=== PATIENT | male | born 1965 | race Caucasian/White ===

== ENCOUNTER 2023-08-26 17:22 | Emergency (ER) | payer OTHER ==
[~2023-08-26] VITALS: Ht 167.6 cm; Wt 105.0 kg
[2023-08-26 17:24] VITALS: O2SAT 97
[2023-08-26] MEDS: HYDRALAZINE 20MG/ML VIAL IV ONE (18:22)
[2023-08-26 18:48] LABS: BASOPHILS % 0.9 % (0.0-2.0); EOSINOPHILS % 2.7 % (0.0-5.0); HEMATOCRIT. 39.3 % (42.0-52.0); HEMOGLOBIN. 13.2 g/dL (14.0-18.0); LYMPHOCYTES % 22.2 % (20.0-50.0); MEAN CORPUSCULAR HEMOGLOBIN 30.9 pg (28.0-32.0); MEAN CORPUSCULAR HGB CONC 33.6 g/dL (31.0-37.0); MEAN CORPUSCULAR VOLUME 92.1 fL (80.0-94.0); MEAN PLATELET VOLUME 8.7 fl (7.4-10.4); MONOCYTES % 7.3 % (2.0-8.0); NEUTROPHILS % 66.9 % (40.0-76.0); PLATELET 288 x1000/uL (130-400); RED BLOOD CELL COUNT 4.27 mill/uL (4.7-6.1); RED CELL DISTRIBUTION WIDTH 13.7 % (11.6-14.6); WHITE BLOOD COUNT 8.3 x1000/uL (4.5-11.0)
[2023-08-26 18:50] LABS: CHLORIDE 105 mEq/L (98-107); POTASSIUM 3.7 mEq/L (3.5-5.1); SODIUM 141 mEq/L (136-145)
[2023-08-26 18:51] LABS: CARBON DIOXIDE 29 mEq/L (21-32)
[2023-08-26 18:56] LABS: CREATININE 0.7 mg/dL (0.6-1.3); GLUCOSE 97 mg/dL (70-105); UREA NITROGEN BLOOD 6 mg/dL (9-23)
[2023-08-26 18:57] LABS: TROPONIN I HIGH SENSITIVITY 6 ng/L (3.0-53)
[2023-08-26 21:51] LABS: TROPONIN I HIGH SENSITIVITY 6 ng/L (3.0-53)
[2023-08-26] MEDS ORDERED: LISI10TA26 MT (22:19)
[2023-08-26 22:48] VITALS: BP 152/77; PULSE 64; RESP 15; TEMP 98.4
== END 2023-08-26 23:11 | disposition home or self-care (01) ==
LOC: ER 17:22
DX: I10 Essential (primary) hypertension (principal); R06.02 Shortness of breath; F32.9 Major depressive disorder, single episode, unspecified; Z88.0 Allergy status to penicillin
CPT/HCPCS: 36415; 71045; 80048; 83880; 84484; 85025; 93005; 99285